=== PATIENT | male | born 1965 | race Caucasian/White ===

== ENCOUNTER 2023-09-26 15:37 | Emergency (ER) | payer MEDICAID ==
[2023-09-26 16:14] LABS: BLOOD UREA NITROGEN,BUN 20 mg/dL (7-18); BUN/CREATININE RATIO 15.4 (9-20); CALCIUM 8.7 mg/dL (8.6-10.2); CARBON DIOXIDE,CO2 24 mmol/L (21-32); CHLORIDE,CL 101 mmol/L (100-110); CREATININE 1.3 mg/dL (0.70-1.30); ESTIMATED GFR 64 mL/min (>60); GLUCOSE RANDOM 98 mg/dL (80-116); POTASSIUM,K 4.2 mmol/L (3.5-5.3); SODIUM,NA 137 mmol/L (135-145)
[2023-09-26 16:16] LABS: BASOPHILS ABSOLUTE AUTO 0.1 x10-3/uL (0.0-0.3); BASOPHILS PERCENT AUTO 1.1 % (0.3-3.8); EOSINOPHILS ABSOLUTE AUTO 0.2 x10-3/uL (0.0-0.6); EOSINOPHILS PERCENT AUTO 2.8 % (0.1-6.8); HEMATOCRIT 45.1 % (38.3-50.1); HEMOGLOBIN 15.7 g/dL (12.9-17.7); LYMPHOCYTES ABSOLUTE AUTO 1.5 x10-3/uL (0.5-4.5); LYMPHOCYTES PERCENT AUTO 18.4 % (15.8-45.3); MEAN CORPUSCULAR HEMOGLOBIN 31.1 pg (27.0-33.3); MEAN CORPUSCULAR HGB CONC 34.8 g/dL (28.7-35.3); MEAN CORPUSCULAR VOLUME 89.3 fL (80.8-98.7); MONOCYTES ABSOLUTE AUTO 0.9 x10-3/uL (0.0-1.2); MONOCYTES PERCENT AUTO 10.3 % (5.5-15.2); NEUTROPHILS ABSOLUTE AUTO 5.6 x10-3/uL (1.7-6.9); NEUTROPHILS PERCENT AUTO 67.4 % (40.3-71.8); PLATELET COUNT,PLT 253 x10(3)uL (117-477); RED BLOOD CELL COUNT 5.05 x10(6)uL (3.90-5.90); RED CELL DISTRIBUTION WIDTH 13.3 % (12.4-15.0); WHITE BLOOD CELL COUNT,WBC 8.3 x10-3/uL (3.2-10.1)
[2023-09-26 16:20] LABS: ALANINE AMINOTRANSFERASE,ALT 23 U/L (12-36); ALBUMIN 3.6 g/dL (3.5-5.2); ALKALINE PHOSPHATASE 110 IU/L (56-112); ASPARTATE AMNIOTRANSFERASE,AST 19 IU/L (5-25); BILIRUBIN TOTAL 0.5 mg/dL (0.1-1.3); PROTEIN TOTAL,TP 7.2 g/dL (6.0-8.0)
[2023-09-26 16:29] LABS: TROPONIN I 44.2 pg/mL (4.0-60.3)
[2023-09-26 16:31] LABS: D-DIMER QUANTITATIVE 0.61 mg/LFEU (0.0-0.59)
[2023-09-26 16:35] LABS: INR 0.9 (1.00-1.24); PROTHROMBIN TIME 9.5 sec (9.0-11.1); PTT,PARTIAL THROMBOPLSTIN TIME 28.3 SECONDS (24.4-33.2)
[2023-09-26] MEDS: cloNIDine 0.1 MG Tab PO ONE (16:40)
[2023-09-26] MEDS: LORazepam 2 MG/ML SDV IVPUSH ONE (17:11)
[2023-09-26] MEDS: hydrALAZINE 20 MG/ML SDV IVPUSH ONE (17:13)
[2023-09-26] MEDS: Sodium Chloride 0.9% 10 ML Syringe FLUSH PRN (17:13)
[2023-09-26] MEDS: Iopamidol 755 Mg/ML 100 ML Bottle IV SCH (17:31)
[2023-09-26] MEDS: Aspirin 81 MG Tab.Chew PO ONE (18:41)
== END 2023-09-26 20:40 | disposition home or self-care (01) ==
LOC: FB.ED 15:37
DX: I25.118 Atherosclerotic heart disease of native coronary artery with other forms of angina pectoris (principal); I10 Essential (primary) hypertension; F17.210 Nicotine dependence, cigarettes, uncomplicated; Z79.899 Other long term (current) drug therapy
CPT/HCPCS: 71045; 71275; 80053; 83880; 84484; 85025; 85379; 85610; 85730; 93005; 93010; 96374; 96375; 99284; 99285; A9270; J0360; J2060; J3490; Q9967

== ENCOUNTER 2024-04-02 03:03 | Emergency (ER) | payer MEDICARE, MEDICAID ==
[2024-04-02] MEDS: Cyclobenzaprine 10 MG Tab PO ONE (03:29)
[2024-04-02] MEDS: Ketorolac 30 MG/ML SDV IM ONE (03:29)
== END 2024-04-02 03:47 | disposition home or self-care (01) ==
LOC: FB.ED 03:03
DX: M43.6 Torticollis (principal); I11.0 Hypertensive heart disease with heart failure; I50.9 Heart failure, unspecified; Z88.8 Allergy status to other drugs, medicaments and biological substances; Z79.82 Long term (current) use of aspirin
CPT/HCPCS: 96372; 99283; A9270-GY; J1885

== ENCOUNTER 2024-10-20 06:55 | Emergency (ER) | payer MEDICARE, MEDICAID ==
[2024-10-20 07:26] LABS: BASOPHILS ABSOLUTE AUTO 0.1 x10-3/uL (0.0-0.3); EOSINOPHILS ABSOLUTE AUTO 0.2 x10-3/uL (0.0-0.6); EOSINOPHILS PERCENT AUTO 2.3 % (0.1-6.8); HEMATOCRIT 43.8 % (38.3-50.1); HEMOGLOBIN 15.1 g/dL (12.9-17.7); LYMPHOCYTES ABSOLUTE AUTO 1.7 x10-3/uL (0.5-4.5); LYMPHOCYTES PERCENT AUTO 19.8 % (15.8-45.3); MEAN CORPUSCULAR HEMOGLOBIN 31.4 pg (27.0-33.3); MEAN CORPUSCULAR HGB CONC 34.5 g/dL (28.7-35.3); MEAN CORPUSCULAR VOLUME 91.2 fL (80.8-98.7); MEAN PLATELET VOLUME 9.4 fL (6.7-11.0); MONOCYTES ABSOLUTE AUTO 0.8 x10-3/uL (0.0-1.2); MONOCYTES PERCENT AUTO 9.2 % (5.5-15.2); NEUTROPHILS ABSOLUTE AUTO 5.9 x10-3/uL (1.7-6.9); NEUTROPHILS PERCENT AUTO 67.7 % (40.3-71.8); PLATELET COUNT,PLT 236 x10(3)uL (117-477); RED CELL DISTRIBUTION WIDTH 13.7 % (12.4-15.0); WHITE BLOOD CELL COUNT,WBC 8.7 x10-3/uL (3.2-10.1)
[2024-10-20 07:31] LABS: BLOOD UREA NITROGEN,BUN 10 mg/dL (7-18); BUN/CREATININE RATIO 9.1 (9-20); CALCIUM 8.8 mg/dL (8.6-10.2); CARBON DIOXIDE,CO2 30 mmol/L (21-32); CHLORIDE,CL 102 mmol/L (100-110); CREATININE 1.1 mg/dL (0.70-1.30); ESTIMATED GFR 77 mL/min (>60); GLUCOSE RANDOM 97 mg/dL (80-116); POTASSIUM,K 4.1 mmol/L (3.5-5.3); SODIUM,NA 140 mmol/L (135-145)
[2024-10-20 07:37] LABS: A/G RATIO 1.1; ALANINE AMINOTRANSFERASE,ALT 22 U/L (12-36); ALKALINE PHOSPHATASE 109 IU/L (56-112); ASPARTATE AMNIOTRANSFERASE,AST 14 IU/L (5-25); BILIRUBIN TOTAL 0.5 mg/dL (0.1-1.3); MAGNESIUM 1.8 mg/dL (1.8-2.5); PROTEIN TOTAL,TP 7.7 g/dL (6.0-8.0)
[2024-10-20] MEDS: Aspirin 81 MG Tab.Chew PO ONE (07:39)
[2024-10-20] MEDS: amLODIPine 5 MG Tab PO ONE (07:40)
[2024-10-20] MEDS: Metoprolol Succinate 25 MG Tab.ER PO ONE (07:44)
[2024-10-20] MEDS: Sodium Chloride 0.9% 10 ML Syringe FLUSH PRN (07:45)
[2024-10-20] MEDS: Ketorolac 30 MG/ML SDV IVPUSH ONE (10:46)
[2024-10-20] MEDS: LORazepam 2 MG/ML SDV IVPUSH ONE (10:50)
[2024-10-20] MEDS: traMADol 50 MG Tab PO ONE (10:57)
== END 2024-10-20 11:13 | disposition home or self-care (01) ==
LOC: FB.ED 06:55
DX: F41.9 Anxiety disorder, unspecified (principal); I11.0 Hypertensive heart disease with heart failure; I50.9 Heart failure, unspecified; I25.10 Atherosclerotic heart disease of native coronary artery without angina pectoris; Z79.899 Other long term (current) drug therapy; Z88.8 Allergy status to other drugs, medicaments and biological substances; Z72.0 Tobacco use
CPT/HCPCS: 36415; 71045; 80053; 83735; 84484; 85025; 85379; 96374; 96375; 99285-25; A9270-GY; J1885; J2060